=== PATIENT | male | born 1970 | race Hispanic/Latino ===

== ENCOUNTER → 2023-12-16 15:35 | Outpatient (REF) | payer OTHER, SELFPAY | LOC: HWRCS 15:35 | PROVIDERS: ATTENDING PHYSICIAN Family Medicine | DX: R01.1 Cardiac murmur, unspecified (principal) | CPT/HCPCS: 93306 ==

== ENCOUNTER 2025-02-05 06:30 | Day surgery (SDC) | payer OTHER, SELFPAY ==
[2025-02-05 07:26] LABS: Glucose - Point of Care 100 mg/dl (70-99)
== END 2025-02-05 08:24 | disposition home or self-care (01) ==
LOC: GI 06:30
PROVIDERS: ATTENDING PHYSICIAN Internal Medicine Gastroenterology
DX: Z12.11 Encounter for screening for malignant neoplasm of colon (principal); K64.8 Other hemorrhoids; Z86.0100 Personal history of colon polyps, unspecified
CPT/HCPCS: G0105; 82962